=== PATIENT | male | born 1950 | race Caucasian/White ===

== ENCOUNTER 2018-04-29 06:15 | Day surgery (SDC) | payer OTHER ==
[2018-04-28 17:25] VITALS: BMI 33.0
[2018-04-29] MEDS ORDERED: BUPIVACAINE HCL/PF 0.5% (5MG/ML) 10 ML VIAL ONE (08:13)
[2018-04-29] MEDS ORDERED: MIDAZOLAM HCL 2 MG/2 ML SINGLE DOSE VIAL ONE ×2 (08:27)
[2018-04-29] MEDS ORDERED: PROPOFOL 20 ML ONE ×2 (08:36→09:02)
[2018-04-29] MEDS ORDERED: ROCURONIUM BROMIDE 50 MG/5 ML VIAL ONE (08:36)
[2018-04-29] MEDS ORDERED: DEXAMETHASONE SOD PHOSPHATE 4 MG/1 ML VIAL ONE ×2 (08:36→09:36)
[2018-04-29] MEDS ORDERED: LIDOCAINE HCL/PF 2% SDV 5ML VIAL ONE (08:36)
--- NOTE | 2018-04-29 09:07 | HP ---
[facility] - Chief Complaint Chief Complaint: right shoulder pain - Past Medical History Allergies/Adverse Reactions: Allergies Allergy/AdvReac Type Severity Reaction Status Date / Time No Known Allergies Allergy Verified 04/29/18 07:24 - Current Medications Current Medications: Home Medications Medication Instructions Recorded Metoprolol Succinate [Toprol Xl] 25 mg PO DAILY 04/28/18 Amitriptyline HCl 100 mg PO DAILY 04/29/18 Gabapentin 800 mg PO TID 04/29/18 Naproxen [Naprosyn -] 500 mg PO BID 04/29/18 Oxycodone HCl/Acetaminophen 1 - 2 tab PO Q6H #30 tab MDD 6 04/29/18 [Percocet 5-325 mg Tablet] Tramadol HCl 50 mg PO PRN PRN 04/29/18 [facility]ellite Physical Exam - Physical Examination Vital Signs: Vital Signs Period Temp Pulse Resp BP Sys/Gomez Pulse Ox Last 24 Hr 98.4 F-98.4 F 87-87 20-20 132-132/82-82 96 General Appearance: Well Nourished, Well Developed, Alert & Oriented x3 ENT: Clear Lung: Normal air movement Heart: Regular rate & rhythm Extremities: Other (right shoulder- + ttp, decr rom, + neer, + jordan, nvi CT scan + impingement) Neurological: Intact, Alert, Oriented [facility]ellite Impression/Plan - Impression/Plan Impression: left shoulder impingement Operative Procedure: left shoulder arthroscopy with SAD and possible RCR Date to be Performed: 04/29/18
[2018-04-29] MEDS ORDERED: ePHEDrine SULFATE 50 MG/1 ML AMPULE ONE (09:23)
[2018-04-29] MEDS ORDERED: ceFAZolin SODIUM 1 GM VIAL ONE (09:24)
[2018-04-29] MEDS ORDERED: ceFAZolin SODIUM 1 GM VIAL IVPB ONE (09:26)
[2018-04-29] MEDS ORDERED: ONDANSETRON 4 MG/2 ML VIAL ONE (09:36)
--- NOTE | 2018-04-29 10:22 | OP ---
Operative Note - Note: Operative Date: 04/29/18 ([facility]) Pre-Operative Diagnosis: right shoulder impingement, rct Operation: right shoulder arthroscopy with RCR, biceps tenotomy, and SAD Implants: 1 arthrex swivelock Post-Operative Diagnosis: Same as Pre-op Surgeon: Reddy Negron Director Of Sales Support: Thomas Edwards Anesthesiologist/CASH OFFICE WORKER: Bo Kemp Anesthesia: General, Local Specimens Removed: shavings Estimated Blood Loss (mls): 5 Operative Report Dictated: Yes
[2018-04-29] MEDS ORDERED: ONDANSETRON 4 MG/2 ML VIAL IVPUSH PRN (10:29)
[2018-04-29] MEDS ORDERED: PROMETHAZINE HCL 25 MG/1 ML VIAL IVPUSH PRN (10:29)
[2018-04-29] MEDS ORDERED: LACTATED RINGERS SOLUTION 1,000 ML IV SCH (10:30)
--- NOTE | 2018-04-29 10:54 | OP ---
DATE OF OPERATION: 04/29/2018 PREOPERATIVE DIAGNOSIS: Internal derangement of right shoulder. POSTOPERATIVE DIAGNOSIS: Internal derangement of right shoulder. PROCEDURE: Laparoscopy of right shoulder with arthroscopic repair of the rotator cuff and biceps tenotomy of the long head of the biceps. SURGICAL ATTENDING: Reddy Negron MD MARKETING ANALYTICS SPECIALIST: DOROTHY Gray ANESTHESIA: Regional and general. CLOSURE: FiberWire and SwiveLock for rotator cuff, 3-0 nylon for skin. ESTIMATED BLOOD LOSS: Negligible. COMPLICATIONS: None. CONDITION: To recovery room in stable condition. DESCRIPTION OF THE PROCEDURE: Patient taken to the operating room on April 29, 2018. Regional and general anesthesia were administered by the anesthesiologist. IV Kefzol was administered prophylactically prior to the case. Patient placed in a beach chair position with all prominences well padded. Right shoulder area was prepped and draped in the usual sterile fashion. Posterior diagnostic arthroscopy of the glenohumeral joint was performed. Posterior portal was made 2 fingerbreadths below the acromion first with a 15-blade followed by blunt trocar. Circumferential exam of the glenohumeral joint revealed the following: Intact glenoid and humeral head articular cartilage, intact labrum circumferentially. No loose bodies in the axillary pouch. Intact subscapularis tendon. The biceps tendon was markedly frayed. It was hanging on by less than 5%, and the rest of the tendon was markedly frayed and degenerative and was therefore debrided and a tenotomy was performed, allowing the biceps tendon to snap into the arm. Its stump was debrided. This was done through a small anterior portal which was first made with a spinal needle followed by blunt trocar. The rest of the rotator cuff appeared to be intact from the articular surface. Fluid was drained from the shoulder and trocars were removed. Posterior trocar was redirected in the subacromial space. Accessory portal was made with a 15-blade followed by blunt trocar. A bursectomy was performed in the subacromial space. The coracoacromial ligament was identified and detached off the was debrided further. Acromioplasty was then performed, debriding sufficient bone to gain height for the rotator cuff. in the humeral head was debrided, exposing the rotator cuff beneath. The rotator cuff was found to have a high-grade partial-thickness rotator cuff tear at it most anterior portion. This was completed with the shaver. The greater tuberosity was stimulated with the shaver. Two horizontal mattress sutures were passed using Scorpio needle punch. They were fixated to the greater tuberosity with 1 SwiveLock, and then the sutures were cut snug. Repair revealed good stability with excellent clearance subacromial space. The fluid was drained, trocars were closed using 3-0 nylon. Sterile pressure dressing followed by shoulder immobilizer was applied. Patient awakened from anesthesia and transferred to recovery in stable condition. No complications. Estimated blood loss negligible. Gabriel [id number]
[2018-04-29 13:56] VITALS: BP 125/72; PULSE 90
[2018-04-29 14:28] VITALS: TEMP 98
--- NOTE | 2018-04-30 16:44 | PATH ---
Surgical Pathology Report Patient Name: SHWETA FORMAN [facility]. Rec. #: [id number] /Age/Gender: 1950 (Age: 68) / M Account: [id number] Location: [facility] SURGICAL Taken: 04/29/2018 Received: 04/29/2018 Reported: 04/30/2018 Physicians: Reddy Negron M.D. Specimen(s) Received RIGHT SHOULDER SHAVINGS Clinical History Right shoulder tear Final Diagnosis RIGHT SHOULDER SHAVINGS: FRAGMENTS OF SYNOVIAL TISSUE AND FIBROCARTILAGINOUS TISSUE WITH REACTIVE AND DEGENERATIVE CHANGE. Electronically Signed Arleen Noel M.D. Gross Description Received in formalin, labeled "right shoulder shavings" are multiple fragments of white and yellow soft tissue having an aggregate of 3.3 x 2 x 0.8 cm. Sightseeing Guide tissue is submitted one cassette. [facility]/04/29/2018
== END 2018-04-29 14:30 | disposition home or self-care (01) ==
LOC: JASU-SURG 06:15
PROVIDERS: ATTEND Orthopaedic Surgery
PROC: 0LN14ZZ Release Right Shoulder Tendon, Percutaneous Endoscopic Approach (ICD-10-PCS; 2018-04-29)
PROC: 0RNJ4ZZ Release Right Shoulder Joint, Percutaneous Endoscopic Approach (ICD-10-PCS; principal; 2018-04-29 08:45)
DX: M75.101 Unspecified rotator cuff tear or rupture of right shoulder, not specified as traumatic (principal)
CPT/HCPCS: 88304-TC; 94760